=== PATIENT | male | born 1960 | race Caucasian/White ===

== ENCOUNTER → 2020-10-29 | Outpatient (CLI) | payer BC ==
--- NOTE | 2020-10-30 22:31 | MR ---
EXAMINATION TYPE: MR lumbar spine wo con DATE OF EXAM: 10/29/2020 COMPARISON: NONE HISTORY: LBP, left sciatica x 2 yrs. No hx of trauma or surgery. TECHNIQUE: Multiplanar, multisequence imaging of the lumbar spine is performed without IV contrast. FINDINGS: Sagittal images of the lumbar spine show vertebral body heights and alignment to appear sat isfactory. Multilevel disc desiccation with disc space heights are fairly well maintained.. The conu s medullaris is normal in position and signal ending mid L1 level. The bone marrow signal intensity is within normal limits. Small hemangioma involving L5 vertebra. Axial images at T12-L1 level shows mild/moderate facet arthropathy and ligamentum flavum hypertrophy effacing the posterior lateral thecal sac. Axial images at L1-L2 level shows mild broad-based disc bulging and mild facet arthropathy bilaterall y. Minimal effacement anterior thecal sac. Axial images at L2-L3 level shows moderate facet arthropathy bilaterally. Mild broad disc bulge. Spin al canal preserved. Axial images at L3-L4 level mild/moderate facet arthropathy bilaterally. Mild to moderate broad-based disc bulge. Mild right and moderate to severe left-sided neural foraminal narrowing. Axial images at L4-L5 level shows moderate right greater than left facet arthropathy. Moderate broad disc bulge. Moderate to severe bilateral neural foraminal narrowing encroaching on both exiting L4 ne rves. Axial images at L5-S1 level show moderate to advanced facet arthropathy bilaterally. Mild broad disc bulge. Mild to moderate bilateral neural foraminal narrowing. Paraspinal muscle bulk is maintained. IMPRESSION: Multilevel degenerative changes in the lumbar spine as detailed above. Encroachment on bi lateral exiting L4 nerves at L4-L5 level is felt present.
== END | disposition home or self-care (01) ==
LOC: RADMRIMAIN 18:46
PROVIDERS: ATTEND Chiropractor
DX: M47.816 Spondylosis without myelopathy or radiculopathy, lumbar region (principal)
CPT/HCPCS: 72148

== ENCOUNTER 2021-05-12 09:41 | Emergency (ER) | payer BC ==
[2021-05-12 10:00] VITALS: PULSE 80
[2021-05-12] MEDS ORDERED: ACETAMINOPHEN TAB 500 MG TAB PO STA (10:02)
[2021-05-12] MEDS ORDERED: SODIUM CHLORIDE 0.9% 500 ML 500 ML IV ONE (10:06)
[2021-05-12] MEDS ORDERED: DEXAMETHASONE SOD PHOSPHATE 10 MG/ML 1 ML VIAL IV STA (10:06)
--- NOTE | 2021-05-12 10:20 | ED ---
General Adult HPI - General Chief complaint: Shortness of Breath Stated complaint: Covid+/SOB Time Seen by Provider: 05/12/21 09:56 Source: patient, EMS, RN notes reviewed, old records reviewed Mode of arrival: EMS Limitations: no limitations - History of Present Illness Initial comments: 61-year-old male presenting for evaluation of fever, dyspnea. Patient has coronavirus currently. He tested positive and has had symptoms for the past 9 days. He was transported by EMS he did require some supplemental oxygen, initial oxygenation was in the 80s. The patient is not vaccinated. He reports continued fevers over the past 9 days. No vomiting or diarrhea. Poor appetite. - Related Data Home Medications Medication Instructions Recorded Confirmed Aspirin EC [Ecotrin Low Dose] 81 mg PO HS 05/12/21 05/12/21 hydroCHLOROthiazide [Hydrodiuril] 25 mg PO DAILY 05/12/21 05/12/21 Previous Rx's Medication Instructions Recorded Dexamethasone [Decadron] 6 mg PO DAILY 5 Days #5 tablet 05/12/21 Allergies Allergy/AdvReac Type Severity Reaction Status Date / Time No Known Allergies Allergy Verified 05/12/21 11:56 Review of Systems ROS Statement: Those systems with pertinent positive or pertinent negative responses have been documented in the HPI. ROS Other: All systems not noted in ROS Statement are negative. Past Medical History Past Medical History: Hypertension History of Any Multi-Drug Resistant Organisms: None Reported Past Surgical History: Coronary Bypass/CABG, Orthopedic Surgery Additional Past Surgical History / Comment(s): L hip replacement, quadrupal CABG 2011 Past Psychological History: No Psychological Hx Reported Smoking Status: Never smoker Past Alcohol Use History: Occasional Past Drug Use History: None Reported General Exam Limitations: no limitations General appearance: alert, in distress (Mild respiratory distress) Head exam: Present: atraumatic, normocephalic Eye exam: Present: normal appearance, PERRL ENT exam: Present: normal exam Neck exam: Present: normal inspection. Absent: tenderness, meningismus Respiratory exam: Present: rhonchi, decreased breath sounds. Absent: respiratory distress Cardiovascular Exam: Present: regular rate, normal rhythm GI/Abdominal exam: Present: soft. Absent: distended, tenderness, guarding Extremities exam: Present: normal inspection, normal capillary refill. Absent: pedal edema Neurological exam: Present: alert, oriented X3, CN II-XII intact. Absent: motor sensory deficit Psychiatric exam: Present: normal affect, normal mood Skin exam: Present: warm, dry, intact. Absent: cyanosis, diaphoretic Course Vital Signs 05/12/21 05/12/21 05/12/21 09:49 10:10 10:19 Temperature 101.7 F H Pulse Rate 80 Respiratory 20 22 Rate Blood Pressure 142/84 O2 Sat by Pulse 96 90 L Oximetry 05/12/21 11:40 Temperature 99.8 F H Pulse Rate 80 Respiratory 20 Rate Blood Pressure 121/63 O2 Sat by Pulse 90 L Oximetry - Reevaluation(s) Reevaluation #1: 05/12/21 13:01 EKG Findings - EKG Comments: EKG Findings:: EKG: Sinus rhythm with arrhythmia and PVC, rate of 87, [place] interval 124, QRS duration 88, QTC 450, no ST segment elevation Medical Decision Making - Medical Decision Making 61-year-old male with coronavirus, they 9. Initial oxygenation is approximately 90. Is able to pulse ox in the emergency Department is 89 or 90. There is no respiratory distress. Chest x-ray shows bilateral infiltrate. He has relatively normal labs. He does receive medical antibodies and IV steroids in the emergency department. I did plan to admit this patient over the patient prefers discharge with close monitoring at home. He has a pulse oximeter. His daughter is an ICU nurse. He is given strict return parameters and will monitor his oxygenation closely at home. - Lab Data Result diagrams: 05/12/21 10:23 05/12/21 10:23 Lab Results 05/12/21 05/12/21 05/12/21 Range/Units 10:23 10:23 10:23 WBC 4.3 (3.8-10.6) k/uL RBC 5.46 (4.30-5.90) m/uL Hgb 16.4 (13.0-17.5) gm/dL Hct 45.4 (39.0-53.0) % MCV 83.1 (80.0-100.0) fL MCH 29.9 (25.0-35.0) pg MCHC 36.0 (31.0-37.0) g/dL RDW 11.8 (11.5-15.5) % Plt Count 105 L (150-450) k/uL MPV 7.9 Neutrophils % 74 % Lymphocytes % 18 % Monocytes % 6 % Eosinophils % 0 % Basophils % 1 % Neutrophils # 3.2 (1.3-7.7) k/uL Lymphocytes # 0.8 L (1.0-4.8) k/uL Monocytes # 0.3 (0-1.0) k/uL Eosinophils # 0.0 (0-0.7) k/uL Basophils # 0.0 (0-0.2) k/uL PT 12.0 (9.0-12.0) sec INR 1.1 (<1.2) APTT 23.9 (22.0-30.0) sec Sodium 134 L (137-145) mmol/L Potassium 3.5 (3.5-5.1) mmol/L Chloride 100 (98-107) mmol/L Carbon Dioxide 23 (22-30) mmol/L Anion Gap 11 mmol/L BUN 35 H (9-20) mg/dL Creatinine 1.22 (0.66-1.25) mg/dL Est GFR (CKD-EPI)AfAm 73 (>60 ml/min/1.73 sqM) Est GFR (CKD-EPI)NonAf 63 (>60 ml/min/1.73 sqM) Glucose 135 H (74-99) mg/dL Plasma Lactic Acid Carlos Alberto (0.7-2.0) mmol/L Calcium 8.0 L (8.4-10.2) mg/dL Total Bilirubin 1.2 (0.2-1.3) mg/dL AST 72 H (17-59) U/L ALT 29 (4-49) U/L Alkaline Phosphatase 50 (38-126) U/L Total Protein 6.9 (6.3-8.2) g/dL Albumin 3.5 (3.5-5.0) g/dL 05/12/21 Range/Units 10:23 WBC (3.8-10.6) k/uL RBC (4.30-5.90) m/uL Hgb (13.0-17.5) gm/dL Hct (39.0-53.0) % MCV (80.0-100.0) fL MCH (25.0-35.0) pg MCHC (31.0-37.0) g/dL RDW (11.5-15.5) % Plt Count (150-450) k/uL MPV Neutrophils % % Lymphocytes % % Monocytes % % Eosinophils % % Basophils % % Neutrophils # (1.3-7.7) k/uL Lymphocytes # (1.0-4.8) k/uL Monocytes # (0-1.0) k/uL Eosinophils # (0-0.7) k/uL Basophils # (0-0.2) k/uL PT (9.0-12.0) sec INR (<1.2) APTT (22.0-30.0) sec Sodium (137-145) mmol/L Potassium (3.5-5.1) mmol/L Chloride (98-107) mmol/L Carbon Dioxide (22-30) mmol/L Anion Gap mmol/L BUN (9-20) mg/dL Creatinine (0.66-1.25) mg/dL Est GFR (CKD-EPI)AfAm (>60 ml/min/1.73 sqM) Est GFR (CKD-EPI)NonAf (>60 ml/min/1.73 sqM) Glucose (74-99) mg/dL Plasma Lactic Acid Carlos Alberto 1.8 (0.7-2.0) mmol/L Calcium (8.4-10.2) mg/dL Total Bilirubin (0.2-1.3) mg/dL AST (17-59) U/L ALT (4-49) U/L Alkaline Phosphatase (38-126) U/L Total Protein (6.3-8.2) g/dL Albumin (3.5-5.0) g/dL Disposition Clinical Impression: COVID-19 Disposition: HOME SELF-CARE Condition: Fair Instructions (If sedation given, give patient instructions): Coronavirus Disease 2019 (COVID-19) Additional Instructions: please take vital supplementation including vitamin C, vitamin D, and zinc. Please monitor your oxygenation closely and return at any point if needed. Prescriptions: Dexamethasone [Decadron] 6 mg PO DAILY 5 Days #5 tablet Is patient prescribed a controlled substance at d/c from ED?: No Referrals: Fred Castillo DO [Primary Care Provider] - 1-2 days Time of Disposition: 13:04
[2021-05-12 10:45] LABS: Basophils % (A) 1 %; Eosinophils % (A) 0 %; HCT 45.4 % (39.0-53.0); HGB 16.4 gm/dL (13.0-17.5); Lymphocytes # (A) 0.8 k/uL (1.0-4.8); Lymphocytes % (A) 18 %; MCH 29.9 pg (25.0-35.0); MCV 83.1 fL (80.0-100.0); Mean Platelet Volume 7.9; Monocytes # (A) 0.3 k/uL (0-1.0); Monocytes % (A) 6 %; Neutrophils # (A) 3.2 k/uL (1.3-7.7); Neutrophils % (A) 74 %; RBC 5.46 m/uL (4.30-5.90); RDW 11.8 % (11.5-15.5); WBC 4.3 k/uL (3.8-10.6)
[2021-05-12] MEDS ORDERED: SODIUM CHLORIDE 0.9% 50 ML IVPB ONE (10:45)
[2021-05-12 10:53] LABS: Albumin 3.5 g/dL (3.5-5.0); Total Bilirubin 1.2 mg/dL (0.2-1.3); Total Protein 6.9 g/dL (6.3-8.2)
[2021-05-12 10:54] LABS: Potassium 3.5 mmol/L (3.5-5.1)
[2021-05-12] MEDS ORDERED: SOTROVIMAB (EUA) 500 MG in SODIUM CHLORIDE 0.9% 100 ML IVPB ONE (11:00)
--- NOTE | 2021-05-12 11:06 | XR ---
EXAMINATION TYPE: XR chest 1V portable DATE OF EXAM: 05/12/2021 COMPARISON: NONE HISTORY: Shortness of breath TECHNIQUE: Single frontal view of the chest is obtained. FINDINGS: Coarsened interstitium with patchy areas of infiltrate. There is arthropathy of the should ers with no pleural effusion or pneumothorax. Heart size normal. Hypertrophic and degenerative change of the spine. Postoperative changes seen. No pneumothorax. IMPRESSION: Patchy bilateral areas of infiltrate correlate for multifocal.
[2021-05-12 11:08] LABS: Platelet Count 105 k/uL (150-450)
[2021-05-12 11:24] LABS: INR 1.1 (<1.2); Partial Thromboplastin Time 23.9 sec (22.0-30.0)
[2021-05-12 11:51] VITALS: RESP 20
[2021-05-12 13:51] VITALS: BP 111/59; TEMP 98.9
== END 2021-05-12 13:18 | disposition home or self-care (01) ==
LOC: EC 09:41
DX: U07.1 COVID-19 (principal); I10 Essential (primary) hypertension; Z79.82 Long term (current) use of aspirin; Z95.1 Presence of aortocoronary bypass graft; Z96.642 Presence of left artificial hip joint
CPT/HCPCS: 99285; 96374; 36415; 93005; 80053; 83605; 85025; 85610; 85730; 71045; J1100; Q0247